=== PATIENT | female | born 1985 | race Caucasian/White ===

== ENCOUNTER 2017-11-27 09:18 | Inpatient (IN) | payer OTHER ==
[~2017-11-27] VITALS: Ht 167.6 cm; Wt 78.6 kg
[2017-12-08] VITALS (35 sets, daily range): BP systolic 82–116; BP diastolic 46–74; PULSE 75–113; TEMP 97.7–98.5
[2017-12-08] MEDS ORDERED: PRENATAL1 TA7 PO (08:10)
[2017-12-08 08:58] LABS: BASO # 0.1 (0.0-0.2); BASO % 0.5 % (0.0-2.0); EOS # 0.2 (0.0-0.7); EOS % 1.3 % (0-4.0); GRAN % 76.3 % (42.2-75.2); HEMATOCRIT 38.6 % (37.0-47.0); HEMOGLOBIN 12.9 g/dl (12.5-16.0); LYMPH % 14.1 % (20.0-51.0); MEAN CELL VOLUME 92 fl (80.0-100.0); MEAN CORPUSCULAR HEMOGLOBIN 31 pg (27.0-31.0); MEAN CORPUSCULAR HGB CONC 33 g/dl (33.0-37.0); MEAN PLATELET VOLUME 10.9 fl (7.4-10.4); MONO # 0.9 (0.1-0.6); MONO % 6.5 % (1.7-9.3); PLATELET COUNT 196 K/mm3 (130-400); RED BLOOD COUNT 4.22 M/mm3 (4.10-5.30); REDCELL DISTRIBUTION WIDTH-CV 13.7 % (11.5-14.5)
[2017-12-09 00:45] VITALS: BP 120/58; PULSE 80; TEMP 98.8
[2017-12-09 06:53] LABS: HEMATOCRIT 28.5 % (37.0-47.0); HEMOGLOBIN 9.6 g/dl (12.5-16.0)
[2017-12-09 08:30] VITALS: BP 110/52; PULSE 110; TEMP 97.7
[2017-12-09] MEDS ORDERED: IBU600 MG PO (08:36)
[2017-12-09] MEDS ORDERED: PERCOCET 325 MG1 TA2 PO (08:36)
[2017-12-09 14:55] VITALS: BP 108/63; PULSE 98; TEMP 97.7
[2017-12-09 20:00] VITALS: BP 114/58; PULSE 78; TEMP 98.3
[2017-12-10 08:30] VITALS: BP 94/57; PULSE 109; TEMP 98.5
[2017-12-10] MEDS ORDERED: COLACE 100100 MG/CAP PO (09:39)
[2017-12-10 16:00] VITALS: BP 104/64; PULSE 103; TEMP 98.2
[2017-12-10 20:00] VITALS: BP 110/70; PULSE 100; TEMP 98
== END 2017-12-10 20:30 | disposition home or self-care (01) | DRG 775 ==
LOC: EDSTATUS 09:18 → LDRO 13:31 → LDR 12-08 07:35 → OB 12-08 07:35 → LDR 12-08 09:18 → OB 12-08 17:00
PROVIDERS: Obstetrics & Gynecology
PROC: 10D07Z6 Extraction of Products of Conception, Vacuum, Via Natural or Artificial Opening (ICD-10-PCS; principal; 2017-12-08)
PROC: 0KQM0ZZ Repair Perineum Muscle, Open Approach (ICD-10-PCS; 2017-12-08)
PROC: 3E033VJ Introduction of Other Hormone into Peripheral Vein, Percutaneous Approach (ICD-10-PCS; 2017-12-08)
PROC: 0UQMXZZ Repair Vulva, External Approach (ICD-10-PCS; 2017-12-08)
DX: O75.89 Other specified complications of labor and delivery (principal); O99.824 Streptococcus B carrier state complicating childbirth; O70.1 Second degree perineal laceration during delivery; O76 Abnormality in fetal heart rate and rhythm complicating labor and delivery; O71.82 Other specified trauma to perineum and vulva; O77.0 Labor and delivery complicated by meconium in amniotic fluid; Z3A.39 39 weeks gestation of pregnancy; Z37.0 Single live birth; Z88.0 Allergy status to penicillin
CPT/HCPCS: J2590; J2795; J7120